=== PATIENT | female | born 1990 | race Caucasian/White ===

== ENCOUNTER 2020-11-29 12:15 | Emergency (ER) | payer SELFPAY ==
[2020-11-29] MEDS ORDERED: Meclizine HCl 25 MG TAB ONE (14:48)
[2020-11-29 16:01] LABS: Bilirubin Negative (Negative); Blood, Urine Trace (Negative); Clarity Clear (Clear); Glucose, Urine (Dipstick) Negative (Negative); Ketone, Urine Negative (Negative); Leukocyte Negative (Negative); Nitrite Negative (Negative); Protein, Urine (Dipstick) Negative (Neg-Trace); Specific Gravity, Urine 1.025 (1.005-1.030); Urobilinogen 0.2 mg/dL (Less than 2)
[2020-11-29 16:03] LABS: Pregnancy Test - Urine (BHCG) Negative (Negative); Specific Gravity 1.025 (1.002-1.036)
[2020-11-29 16:04] LABS: Pregu Control Background? CLEAR/WHITE (CLR/WHITE); Pregu Control Bar Appear? YES (CONTROL BAR)
[2020-11-29 16:12] LABS: RBC/HPF 0-3 HPF (0-3); WBC/HPF 0-3 HPF (0-3)
[2020-11-29 16:13] LABS: Bacteria/HPF None Seen HPF (None Seen); Squamous Epithelial 0-3 HPF (0-3)
== END 2020-11-29 16:31 | disposition home or self-care (01) ==
LOC: BURERS 12:15
DX: R42 Dizziness and giddiness (principal)
CPT/HCPCS: 71045; 81003; 81015; 81025; 93005